=== PATIENT | male | born 1975 | race Asian ===

== ENCOUNTER → 2020-12-27 03:29 | Outpatient (CLI) | payer BC, SELFPAY ==
[2020-12-27 18:57] LABS: SARS-CoV-2 RNA PCR Negative
== END ==
PROVIDERS: PCP Family Medicine; Visit Provider Nurse Practitioner Family
DX: R50.9 Fever, unspecified (principal); Z20.822 Contact with and (suspected) exposure to COVID-19
CPT/HCPCS: C9803; U0003; U0005

== ENCOUNTER 2023-01-28 09:44 | Outpatient (CLI) | payer BC, SELFPAY ==
[2023-01-28 10:13] LABS: Hematocrit 43.4 % (42.0-52.0); Hemoglobin 14.4 g/dL (14.0-18.0); Mean Corpuscular HGB Conc 33.2 g/dl (32-36); Mean Corpuscular Volume 93.5 fl (80-100); Mean Platelet Volume 9.3 fl (7.4-10.4); Platelet Count Result 207 k/mm3 (150-375); Red Blood Count 4.64 M/mm3 (4.6-6.20); Red Cell Distribution Width 12.2 % (11.5-14.5); White Blood Count 4.9 K/mm3 (4.5-10.0)
[2023-01-28 10:23] LABS: Anion Gap 8 mmol/L (8-16); Blood Urea Nitrogen 20 mg/dL (9-20); Calcium 9.3 mg/dL (8.4-10.2); Carbon Dioxide 26 mmol/L (22-30); Chloride 105 mmol/L (98-107); Cholesterol 187 mg/dL (0-200); Estimated Glomerular Filt Rate > 60; Glucose 93 mg/dL (65-110); HDL Direct 80 mg/dL; Potassium 4.4 mmol/L (3.4-5.0); Sodium 139 mmol/L (137-145); Triglycerides 63 mg/dL (<150)
[2023-01-28 10:35] LABS: LDL Cholesterol Direct 83 mg/dL
[2023-01-28 11:01] LABS: Iron 110 ug/dL (49-181)
[2023-01-28 11:09] LABS: Prostate Specific Antigen 0.7 ng/mL (< OR = 4.0)
[2023-01-28 11:21] LABS: Percent Iron Saturation 35 % (20-50)
[2023-01-31 14:47] LABS: Testosterone Free 52.3 pg/mL (35.0-155.0); Testosterone Total 306 ng/dL (250-1100)
== END 2023-01-28 09:45 | disposition home or self-care (01) ==
LOC: ANHLAB 09:46
PROVIDERS: PCP Family Medicine; Visit Provider Nurse Practitioner Family
DX: R53.83 Other fatigue (principal); Z13.220 Encounter for screening for lipoid disorders; Z13.1 Encounter for screening for diabetes mellitus; Z13.29 Encounter for screening for other suspected endocrine disorder; Z12.5 Encounter for screening for malignant neoplasm of prostate
CPT/HCPCS: 36415; 80048; 80061; 83540; 83550; 84153; 84402; 84403; 84443; 85027; G0103

== ENCOUNTER 2023-02-05 07:05 | Outpatient (CLI) | payer BC, SELFPAY ==
[2023-02-09 16:47] LABS: Testosterone Free 93.1 pg/mL (35.0-155.0); Testosterone Total 470 ng/dL (250-1100)
== END 2023-02-05 07:06 | disposition home or self-care (01) ==
LOC: ANHLAB 07:06
PROVIDERS: PCP Family Medicine; Visit Provider Nurse Practitioner Family
DX: E34.9 Endocrine disorder, unspecified (principal)
CPT/HCPCS: 36415; 84402; 84403

== ENCOUNTER 2023-02-13 11:16 | Outpatient (CLI) | payer BC, SELFPAY ==
[2023-02-17 13:06] LABS: Testosterone Free 40.3 pg/mL (35.0-155.0); Testosterone Total 243 ng/dL (250-1100)
== END 2023-02-13 11:17 | disposition home or self-care (01) ==
LOC: ANHLAB 11:17
PROVIDERS: PCP Family Medicine; Visit Provider Nurse Practitioner Family
DX: E34.9 Endocrine disorder, unspecified (principal)
CPT/HCPCS: 36415; 84402; 84403